=== PATIENT | male | born 1990 | race Caucasian/White ===

== ENCOUNTER 2019-07-30 21:34 | Emergency (ER) | payer BC ==
[~2019-07-30] VITALS: Ht 180.3 cm; Wt 93.0 kg
--- NOTE | 2019-07-30 22:00 | NUR ---
Dr. Griffin at bedside for MSE
[2019-07-30] MEDS ORDERED: KETOROLAC TROMETHAMINE 15 MG INJ IVP ONE (22:15)
[2019-07-30] MEDS ORDERED: IV NORMAL SALINE 1000 ML BAG IV ONE (22:15)
[2019-07-30] MEDS ORDERED: ONDANSETRON 4 MG/2 ML VIAL IV ONE (22:15)
[2019-07-30] MEDS ORDERED: HYDROMORPHONE 1 MG/1 ML DISP.SYRIN IV ONE (22:15)
[2019-07-30] MEDS ORDERED: ONDANSETRON 4 MG/2 ML VIAL ONE (22:23)
[2019-07-30] MEDS ORDERED: HYDROMORPHONE 2 MG/1 ML DISP.SYRIN ONE (22:23)
[2019-07-30] MEDS ORDERED: KETOROLAC TROMETHAMINE 30 MG INJ ONE (22:23)
--- NOTE | 2019-07-30 23:39 | NUR ---
IV removed. Catheter intact and site benign. Pressure and 4x4 gauze applied to site. No bleeding noted. Patient discharged to home in stable conditon. Written and verbal after care instructions given. Patient verbalizes understanding of instructions. Patient ambulating with steady gait. Instructed patient not to drive. Father at bedside stating he will be driving
[2019-07-30 23:40] VITALS: BP 134/86
== END 2019-07-30 23:37 | disposition home or self-care (01) ==
LOC: ER 21:36
DX: N20.0 Calculus of kidney (principal)
CPT/HCPCS: 74176; 96374; 96375; 99284; J1170; J1885; J2405; A4663; J7030

== ENCOUNTER 2019-08-01 08:27 | Emergency (ER) | payer BC ==
[~2019-08-01] VITALS: Ht 180.3 cm; Wt 93.0 kg
--- NOTE | 2019-08-01 08:40 | NUR ---
Patient ambulated with stable gait. Speech is clear, speaks in complete sentences. No acute neuro deficits. A/Ox4. Patient came for c/o left sided flank pain that started happening this AM [employer]. Pain 4/10 non radiating. Active bowel sounds x4 quad. Denies any n/v/d. Patient in bed at lowest position, sr upx2, call light within reach. Fall precautions implemented per protocol.
--- NOTE | 2019-08-01 08:50 | NUR ---
ERMD at bedside for MSE
[2019-08-01] MEDS ORDERED: IV NORMAL SALINE 1000 ML BAG IV ONE (09:00)
[2019-08-01] MEDS ORDERED: KETOROLAC TROMETHAMINE 30 MG INJ IM ONE (09:00)
--- NOTE | 2019-08-01 09:00 | NUR ---
Per ERMD, patient refuses IV, and blood draw.
[2019-08-01] MEDS ORDERED: KETOROLAC TROMETHAMINE 30 MG INJ ONE (09:08)
[2019-08-01 09:19] LABS: *BILIRUBIN,URIN NEGATIVE (NEGATIVE); *BLOOD, URINE 3+ (NEGATIVE); *CLARITY,URINE SLIGHTLY CLOUDY (CLEAR); *COLOR,URINE YELLOW (YELLOW); *KETONES,URINE NEGATIVE (NEGATIVE); *UROBILINOGEN,URINE 0.2 E.U./dl (NORMAL); LEUKOCYTE ESTERASE ,URINE NEGATIVE (NEGATIVE); NITRITE, URINE NEGATIVE (NEGATIVE); PH,URINE 6.5 (5.0-8.0); UGLUCOSE NEGATIVE (NEGATIVE)
--- NOTE | 2019-08-01 09:19 | NUR ---
Roger, US tech at bedside for MSE
[2019-08-01 09:22] LABS: BASOPHILS % (AUTO) 0.3 % (0.0-2.0); EOSINOPHILS # (AUTO) 0.1 K/uL (0.0-0.7); EOSINOPHILS % (AUTO) 1.2 % (0.0-7.0); HEMATOCRIT 40.5 % (36.7-47.1); HEMOGLOBIN 13.7 g/dL (12.5-16.3); LYMPHOCYTES # (AUTO) 1.6 K/uL (20.0-40.0); LYMPHOCYTES % (AUTO) 14.6 % (20.5-51.5); MEAN CORPUSCULAR HEMOGLOBIN 31.9 uug (23.8-33.4); MEAN CORPUSCULAR HGB CONC 34 g/dL (32.5-36.3); MEAN CORPUSCULAR VOLUME 94.1 fL (73.0-96.2); MONOCYTES # (AUTO) 0.7 K/uL (2.0-10.0); NEUTROPHILS # (AUTO) 8.6 K/uL (1.8-8.9); NEUTROPHILS % (AUTO) 77.9 % (38.5-71.5); PLATELET COUNT (AUTO) 253 K/uL (152-348); WHITE BLOOD COUNT (AUTO) 11.1 K/uL (3.6-10.2)
[2019-08-01 09:23] LABS: CREATININE 0.9 mg/dL (0.6-1.3)
[2019-08-01 09:30] LABS: BILIRUBIN,DIRECT 0.1 mg/dL (0.0-0.2); BILIRUBIN,TOTAL 0.5 mg/dL (0.2-1.0); TOTAL PROTEIN, SERUM 7.1 g/dL (6.4-8.2)
[2019-08-01 09:42] LABS: BACTERIA,URINE FEW /HPF (NONE SEEN); SQUAMOUS EPITHELIAL CELL,UR FEW /HPF (NONE SEEN); WBC,URINE 0-3 /HPF (0-3)
--- NOTE | 2019-08-01 09:52 | NUR ---
Patient discharged to home in stable conditon. Written and verbal after care instructions given. Patient verbalizes understanding of instructions. Patient ambulated with stable gait.
[2019-08-01 09:53] VITALS: BP 121/80
== END 2019-08-01 09:53 | disposition home or self-care (01) ==
LOC: ER 08:27
DX: N20.9 Urinary calculus, unspecified (principal)
CPT/HCPCS: 36415; 76770; 80048; 80076; 81000; 81001; 83690; 85025; 96372; 99284; J1885; A4663; J7030